=== PATIENT | female | born 1965 ===

== ENCOUNTER 2022-12-01 11:36 | Inpatient (IN) | payer OTHER ==
[~2022-12-01] VITALS: Ht 160 cm; Wt 72.6 kg
[2022-12-02] MEDS ORDERED: LIPITOR20 MG PO (09:39)
[2022-12-02] MEDS ORDERED: ENDOMETRIN100 MG VAG (09:39)
[2022-12-02] MEDS ORDERED: SINGULAIR 10MG10 MG PO (09:39)
[2022-12-02] MEDS ORDERED: ZYRTEC10 M3 PO (09:39)
[2022-12-02] MEDS ORDERED: BRIMONIDINE TART5 ML OP (09:40)
[2022-12-09] MEDS ORDERED: DICLOFENAC POTA50 MG (13:20)
[2022-12-09] MEDS ORDERED: MONTELUKAST SOD10 MG (13:20)
== END 2022-12-12 11:59 | disposition home or self-care (01) | DRG 743 ==
LOC: OB/GYN 12-09 07:45 → O/R 12-09 09:45 → OB/GYN 12-09 09:45 → SURH 12-09 16:17 → OB/GYN 12-09 16:21
PROVIDERS: ADMIT Obstetrics & Gynecology; ATTEND Obstetrics & Gynecology
PROC: 0UT70ZZ Resection of Bilateral Fallopian Tubes, Open Approach (ICD-10-PCS; 2022-12-09)
PROC: 0UT20ZZ Resection of Bilateral Ovaries, Open Approach (ICD-10-PCS; 2022-12-09)
PROC: 0UTC0ZZ Resection of Cervix, Open Approach (ICD-10-PCS; 2022-12-09)
PROC: 0UT90ZZ Resection of Uterus, Open Approach (ICD-10-PCS; principal; 2022-12-09 11:00)
DX: D25.2 Subserosal leiomyoma of uterus (principal); N72 Inflammatory disease of cervix uteri; N73.6 Female pelvic peritoneal adhesions (postinfective); Z20.822 Contact with and (suspected) exposure to COVID-19